=== PATIENT | male | born 1985 | race American Indian/Alaskan Native ===

== ENCOUNTER 2021-02-15 12:46 | Emergency (ER) | payer SELFPAY ==
[2021-02-15 13:41] VITALS: BP 131/88
[2021-02-15] MEDS ORDERED: PENICILLIN G BENZATHINE 1.2 MILLION UNIT/2 ML INJ IM ONE (15:05)
--- NOTE | 2021-02-15 15:15 | Emergency Department Report ---
ED General Adult HPI - General Chief complaint: Urogenital-Male Stated complaint: JOCK ITCH Time Seen by Provider: 02/15/21 14:55 Source: patient Mode of arrival: Ambulatory Limitations: No Limitations - History of Present Illness Initial comments: 35-year-old male patient presents to the emergency department with complaints of a pruritic lesion to his left scrotum for several months. Patient has used [id number] antifungals with limited relief. Symptoms are no different today. He has not seen a primary care provider for this issue. Denies fever, chills, abdominal pain, testicular pain/swelling, penile discharge. Denies all other complaints at this time. - Related Data Previous Rx's Medication Instructions Recorded Last Taken Type diphenhydrAMINE/ZINC 2% [Banophen 28.4 gm TP TID #1 tube 02/15/21 Unknown Rx Anti-Itch] ED Review of Systems ROS: Stated complaint: JOCK ITCH Other details as noted in HPI Other: GENERAL: Negative for fever. CARDIOVASCULAR: Negative for chest pain. PULMONARY: Negative for shortness of breath. GASTROINTESTINAL: Negative for abdominal pain. MUSCULOSKELETAL: Negative for back pain. NEUROLOGICAL: Negative for headache. INTEGUMENTARY: Positive for rash. ED Past Medical Hx - Past Medical History Previous Medical History?: No - Surgical History Past Surgical History?: No - Medications Home Medications: Home Medications Medication Instructions Recorded Confirmed Last Taken Type diphenhydrAMINE/ZINC 2% [Banophen 28.4 gm TP TID #1 tube 02/15/21 Unknown Rx Anti-Itch] ED Physical Exam - General Limitations: No Limitations - Other Other exam information: General: Awake, appropriately interactive, no acute distress. Neck: Supple. Full range of motion intact. Cardiovascular: Normal peripheral perfusion. Pulmonary: No respiratory distress. Patient is speaking normally without use of accessory muscles. 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 No evidence of inguinal hernia. No scrotal edema or tenderness. No testicular asymmetry. No blood or discharge at the urethral meatus. Small nontender ulcer noted to the lateral aspect of the left testicle. Neurological: No facial asymmetry. Speech is clear. Follows commands. Patient is alert and oriented. Musculoskeletal: Moves all four extremities spontaneously with normal range of motion. Psych: Cooperative. Appropriate mood and affect. ED Course Vital Signs 02/15/21 13:41 Temperature 98.4 F Pulse Rate 71 Respiratory 16 Rate Blood Pressure 131/88 [Right] O2 Sat by Pulse 98 Oximetry ED Medical Decision Making - Medical Decision Making Differential diagnosis including but not limited to: tinea cruris, syphillis, chancroid, herpes genitalis Patient presents to the emergency department with signs/symptoms suggestive of possible primary syphilis. Treated empirically with IM Penicillin per current CDC guidelines and referred to local health department for outpatient testing. Patient expressed understanding and is agreeable to plan of care. Disease transmission precautions discussed. Strict return precautions provided. History, exam, diagnostic testing, and current condition do not suggest worrisome pathology to warrant further testing, continued ED treatment, admission, or surgical evaluation at this point. Given the low probability of a significant medical illness, it would be more likely to result in harm than benefit to perform further testing at this stage. Discussed findings, presumptive diagnosis, need for follow-up and specific signs/symptoms that should prompt immediate return to the emergency department. Instructions were explained in detail to the patient in addition to giving written discharge information. Patient expressed understanding and was given the opportunity to ask questions, all of which were satisfactorily answered prior to discharge home. Critical care attestation.: If time is entered above; I have spent that time in minutes in the direct care of this critically ill patient, excluding procedure time. ED Disposition Clinical Impression: Male genital ulcer Disposition: DC- TO HOME OR SELFCARE Is pt being admited?: No Does the pt Need Aspirin: No Condition: Stable Instructions: Preventing Sexually Transmitted Infections, Adult Additional Instructions: Take Tylenol every 4 hours and Motrin every 8 hours as needed for pain. Use Benadryl cream as needed for itching. You must follow up with [facility] for confirmatory testing. Please use barrier protection when engaging in sexual intercourse. Return to the emergency department immediately for new or worsening symptoms. Prescriptions: diphenhydrAMINE/ZINC 2% [Banophen Anti-Itch] 28.4 gm TP TID #1 tube Referrals: [facility] [Outside] - 3-5 Days Time of Disposition: 15:21
== END 2021-02-15 16:22 | disposition home or self-care (01) ==
LOC: EDSEX → ED 12:46
DX: N48.5 Ulcer of penis (principal)
CPT/HCPCS: 96372; 99282; J0561